=== PATIENT | male | born 1945 | race Two or more races ===

== ENCOUNTER 2019-08-19 19:32 | Inpatient (IN) | payer OTHER, MEDICAID ==
[~2019-08-19] VITALS: Ht 165.1 cm; Wt 63.2 kg
[2019-08-19 21:10] LABS: Basophils # (auto) 0 uL; Eosinophils # (auto) 0 uL; Monocytes # (auto) 0.1 uL
[2019-08-19 21:25] LABS: Albumin 2.6 g/dL (3.4-5.0); Anion Gap 13 (5-15); Blood Urea Nitrogen 24 mg/dL (7-18); Calcium 7.9 mg/dL (8.5-10.1); Carbon Dioxide 20 mmol/L (21-32); Chloride 96 mmol/L (98-107); Glucose 88 mg/dL (74-106); Sodium 129 mmol/L (136-145)
[2019-08-19 21:29] LABS: Alanine Aminotransferase 47 U/L (16-61); Aspartate Aminotransferase 134 U/L (15-37); GFR African American 54 mL/min; GFR Non-African American 45 mL/min
[2019-08-19 21:31] LABS: Alkaline Phosphatase 67 U/L (45-117); Bilirubin, Total 0.7 mg/dL (0.2-1.0); Total Protein 6.6 g/dL (6.4-8.2)
[2019-08-19 21:32] LABS: Lactic Acid w/Reflex 4.2 mmol/L (0.4-2.0)
[2019-08-19 21:33] LABS: Basophils % (auto) 0.3 % (0.0-2.0); Eosinophils % (auto) 0.1 % (0.0-7.0); Lymphocytes % (auto) 15.9 % (10.0-50.0); Monocytes % (auto) 4.6 % (0.0-12.0); Neutrophils % (auto) 79.1 % (37.0-80.0); White Blood Cell 2.3 10^3/uL (4.4-10.8)
[2019-08-19 21:34] LABS: Hematocrit 33.1 % (41.0-53.0); Hemoglobin 10.1 g/dL (13.5-17.5); Lymphocytes # (auto) 0.4 uL; Neutrophils # (auto) 1.8 uL; Nucleated Red Blood Cells % 0.6 %; Red Blood Cells 4.21 10^6/uL (4.5-5.90)
[2019-08-19 21:35] LABS: Mean Corpuscular Hgb Conc. 30.5 g/dL (32.0-36.0); Mean Corpuscular Volume 78.6 fL (80.0-100.0); Platelet Count (auto) 319 10^3/uL (140-450); Red Cell Distribution Width 19.4 % (11.8-14.3)
[2019-08-19] MEDS ORDERED: cefTRIAXone 1GM/50ML D5W 50 ML IV ONE (22:00)
[2019-08-19] MEDS ORDERED: SODIUM CHLORIDE 0.9% 1,000 ML IV ONE (22:00)
[2019-08-19] MEDS ORDERED: VANCOMYCIN 1GM/250ML 250 ML IV ONE (23:00)
[2019-08-19 23:27] VITALS: BP 105/63
--- NOTE | 2019-08-20 00:37 | NUR ---
HFNC TITRATED TO 55L 80% POX 94%
[2019-08-20] MEDS ORDERED: ENOXAPARIN SOD 100 MG/1 ML SYRINGE SC ONE (01:15)
[2019-08-20 01:24] LABS: Alcohol, Urine < 3.0 mg/dL (0-5); Amphetamine Screen, Urine NEGATIVE (NEGATIVE); Barbiturate Scree,Urine NEGATIVE (NEGATIVE); Benzodiazephine Screen, Urine POSITIVE (NEGATIVE); Cannabinoid Screen, Urine NEGATIVE (NEGATIVE); Cocaine Screen, Urine NEGATIVE (NEGATIVE); Phencyclidine Screen, Urine NEGATIVE (NEGATIVE)
[2019-08-20 01:32] LABS: Opiate Scree,Urine POSITIVE (NEGATIVE)
[2019-08-20 02:09] LABS: Urine Bacteria FEW /hpf (None Seen); Urine Blood 2+ /uL (Negative); Urine Hyaline Cast MANY /lpf (0 - 2); Urine Mucus FEW (None Seen); Urine Specific Gravity 1.022 (1.001-1.035); Urine Sperm PRESENT /hpf (None Seen); Urine WBC 11 /hpf (0 - 3)
[2019-08-20] MEDS ORDERED: IBUPROFEN 600 MG TAB PO ONE (02:15)
[2019-08-20] MEDS ORDERED: SODIUM CHLORIDE 0.9% 1,000 ML IV SCH ×2 (04:45→05:50)
[2019-08-20] MEDS ORDERED: SODIUM CHLORIDE 0.9% 500 ML IV ONE (04:45)
[2019-08-20] MEDS ORDERED: ONDANSETRON HCL 4 MG/2 ML VIAL IV PRN (04:45)
[2019-08-20] MEDS ORDERED: VANCOMYCIN PER PHARMACY 0 MG IV SCH (04:45)
[2019-08-20] MEDS ORDERED: MORPHINE SULF INJ 2 MG/ML SYRINGE 1ML IV PRN (05:30)
[2019-08-20] MEDS ORDERED: NITROGLYCERIN 0.4 MG SL TAB SL PRN (05:30)
[2019-08-20 06:10] VITALS: BP 111/65
[2019-08-20] MEDS: PIPERACILLIN-TAZOB 3.375GM 100 ML IV SCH ×3 (06:27→18:04)
--- NOTE | 2019-08-20 07:27 | NUR ---
Respiratory note: TITRATED FLOW TO 40L 50% FIO2. PT TOLERATING WELL POX 98%
[2019-08-20 10:06] VITALS: BP 80/50
[2019-08-20] MEDS: PANTOPRAZOLE 40 MG/10 ML VIAL INJ IV SCH (10:19)
[2019-08-20] MEDS ORDERED: LIDOCAINE HCL 2% TOP JELLY 5ML TOP ONE (10:23)
[2019-08-20 11:02] LABS: Hemoglobin 9.5 g/dL (13.5-17.5); Mean Corpuscular Volume 76.8 fL (80.0-100.0)
[2019-08-20 11:04] LABS: Hematocrit 30.6 % (41.0-53.0); Mean Corpuscular Hemoglobin 23.8 pg (28.0-32.0); Mean Corpuscular Hgb Conc. 30.9 g/dL (32.0-36.0); Platelet Count (auto) 285 10^3/uL (140-450); Red Blood Cells 3.98 10^6/uL (4.5-5.90); Red Cell Distribution Width 19.4 % (11.8-14.3); White Blood Cell 4.3 10^3/uL (4.4-10.8)
[2019-08-20 11:09] LABS: % Iron Saturation 2.2 % (20-55); Iron < 5 ug/dL (65-175); Total Iron Binding Capacity 227 ug/dL (250-450)
[2019-08-20 11:11] LABS: BUN/Creatinine Ratio 23.5; Calcium 7.1 mg/dL (8.5-10.1); Potassium 4.4 mmol/L (3.5-5.1)
[2019-08-20 11:23] LABS: Ferritin 64.2 ng/mL (10-322); Folate (Folic Acid) 17.68 ng/mL (5.38-24)
[2019-08-20 11:25] LABS: Basophils % (manual) 0 (0.0-2.0); Blast Cells 0; Promyelocytes % 0; Reactive Lymphocytes 0
[2019-08-20 12:07] LABS: Band Neutrophils % (manual) 40; Eosinophils % (manual) 2 (0-7); Lymphocytes % (manual) 14 (10.0-50.0); Metamyelocytes % 2; Monocytes % (manual) 12 (0-12); Myelocytes % 4
[2019-08-20] MEDS ORDERED: FILGRASTIM (TBO) 300 MCG/0.5 ML SYRG SC ONE (14:00)
[2019-08-20 14:25] VITALS: BP 80/50
[2019-08-20] MEDS: ACETYLCYSTEINE 10 %(100MG/ML) SOL 4ML NEB SCH ×3 (14:25→22:00)
[2019-08-20] MEDS: ALBUTEROL SULF 2.5 MG/0.5ML(0.5%) NEB SOLN NEB SCH ×3 (14:25→22:07)
[2019-08-20] MEDS: IPRATROPIUM BROM 0.5 MG/2.5ML INH SOL NEB PRN ×3 (14:25→22:07)
[2019-08-20] MEDS ORDERED: FUROSEMIDE 40 MG/4 ML VIAL IV ONE (15:15)
[2019-08-21] MEDS: ALPRAZolam 0.5 MG TAB PO PRN (00:07)
[2019-08-21] MEDS: PIPERACILLIN-TAZOB 3.375GM 100 ML IV SCH ×4 (00:07→19:14)
[2019-08-21] MEDS: ACETYLCYSTEINE 10 %(100MG/ML) SOL 4ML NEB SCH ×8 (02:00→22:19)
[2019-08-21] MEDS: ALBUTEROL SULF 2.5 MG/0.5ML(0.5%) NEB SOLN NEB SCH ×8 (02:00→22:19)
[2019-08-21 06:05] LABS: White Blood Cell 11.2 10^3/uL (4.4-10.8)
[2019-08-21 06:07] LABS: Hematocrit 30.7 % (41.0-53.0); Hemoglobin 9.7 g/dL (13.5-17.5); Mean Corpuscular Hemoglobin 23.9 pg (28.0-32.0); Mean Corpuscular Hgb Conc. 31.7 g/dL (32.0-36.0); Mean Corpuscular Volume 75.6 fL (80.0-100.0); Platelet Count (auto) 329 10^3/uL (140-450); Red Blood Cells 4.07 10^6/uL (4.5-5.90); Red Cell Distribution Width 19.6 % (11.8-14.3)
[2019-08-21] MEDS: FUROSEMIDE 40 MG/4 ML VIAL IV SCH ×2 (06:07→18:10)
[2019-08-21 06:13] LABS: Basophils % (manual) 0 (0.0-2.0); Blast Cells 0; Eosinophils % (manual) 0 (0-7); Promyelocytes % 0; Reactive Lymphocytes 0
[2019-08-21 06:35] LABS: BUN/Creatinine Ratio 24.5; Calcium 7.8 mg/dL (8.5-10.1); Potassium 3.4 mmol/L (3.5-5.1)
[2019-08-21 06:39] LABS: Bilirubin, Total 0.9 mg/dL (0.2-1.0); Total Protein 6.1 g/dL (6.4-8.2)
--- NOTE | 2019-08-21 07:19 | NUR ---
PT REFUSED MED NEB AT THIS TIME, NO SIGNS OF RESPIRATORY DISTRESS OR SOB, WHEEZING. REMOVED PT FROM [facility] AND PLACED PT ON 12L OXYMIZER. SP02 99%, HR 100. ELECTRONIC NEWS GATHERING CAMERA PERSON NOTIFIED.
[2019-08-21] MEDS ORDERED: SODIUM FERR GLUC 62.5MG/5ML 125 MG in SODIUM CHL 0.9% 100 ML IV SCH (08:00)
[2019-08-21 09:19] LABS: Band Neutrophils % (manual) 27; Lymphocytes % (manual) 6 (10.0-50.0); Metamyelocytes % 2; Monocytes % (manual) 5 (0-12); Myelocytes % 5
[2019-08-21] MEDS ORDERED: diphenhdrAMINE HCL 50 MG/1 ML VL ONE (09:49)
[2019-08-21] MEDS ORDERED: diphenhdrAMINE HCL 50 MG/1 ML VL IV ONE (10:00)
[2019-08-21] MEDS: PANTOPRAZOLE 40 MG/10 ML VIAL INJ IV SCH (10:07)
[2019-08-21] MEDS ORDERED: CLOP75TA41 PO (10:08)
[2019-08-21] MEDS ORDERED: PANT40TA2 PO (10:08)
[2019-08-21] MEDS ORDERED: MAGN400T40 PO (10:08)
[2019-08-21] MEDS ORDERED: ALPR0.5T PO (10:08)
[2019-08-21] MEDS ORDERED: TRAM50TA2 PO (10:08)
[2019-08-21] MEDS ORDERED: POTA1TAB61 PO (10:08)
[2019-08-21] MEDS ORDERED: ROSU5TAB5 PO (10:08)
[2019-08-21] MEDS: POTASSIUM CHL 20 Meq TABLET PO SCH ×2 (10:08→22:08)
[2019-08-21] MEDS ORDERED: FOLI1TAB6 PO (10:08)
[2019-08-21] MEDS ORDERED: INSLANTI SC (10:08)
[2019-08-21] MEDS ORDERED: TAMS0.4C36 PO (10:08)
[2019-08-21] MEDS ORDERED: ASPI81CH43 PO (10:08)
[2019-08-21] MEDS ORDERED: MONT4CHW9 PO (10:08)
[2019-08-21] MEDS ORDERED: METF-370 PO (10:08)
[2019-08-21] MEDS ORDERED: HYDR-4833 PO (10:08)
[2019-08-21] MEDS ORDERED: MESA800T2 PO (10:08)
--- NOTE | 2019-08-21 10:43 | NUR ---
Telemetry admit from ER MINDA BENAVIDES admitted to Telemetry unit after SBAR received. Patient oriented to JULIO STEWART, RN primary RN, unit, room 296B and unit policies regarding patient care and visiting hours. Patient now on continuous telemetry monitoring, tele box #69 and telemetry reading on arrival to unit is 129. Patient placed on bedside oxygen, weighed by bedscale and encouraged to call if they need something. All questions and concerns addressed, patient verbalized understanding.
[2019-08-21] MEDS ORDERED: VANCOMYCIN 1GM/250ML 250 ML IV ONE (10:45)
[2019-08-21] MEDS ORDERED: PIPERACILLIN-TAZOB 3.375GM 100 ML IV SCH (11:45)
--- NOTE | 2019-08-21 11:46 | NUR ---
PATIENT EDUCATED ON POSITIONING TO OFFSET PRESSURE Patient has a sacral wound dressed with Optifoam. Patient refuses to turn to his side stating "that's not how my doctor told me to do it" Patient was reeducated on positioning and continues to refuse. Will continue to monitor.
--- NOTE | 2019-08-21 11:55 | NUR ---
WOUND CARE NOTE: Wound care into see patient per wound care request regarding sacral wound that are noted present on admission. Khanh nurse took photographs of patient's wound upon admission for reference. Patient is 74 years old male with admitting diagnosis of Pneumonia with Sepsis. Patient with history of DM, Htn, CVA. Patient is resting in bed in Rm. 296A. Patient is awake, alert and follow simple direction. He's able to assist in turning and repositioning. Patient is in no stated pain at this time, however, informed body ache upon turning. Skin/wound assessment done with the assistance of patient's nurse, DEBBY Oliver. Noted patient's sacrum has large DTI (Deep Tissue Injury) measuring 10x9cm. Wound is dark purple with open ulceration to Lt and Rt distal sacrum, minimal serosanguineous drainage noted, no odor noted. Cleansed patient's sacrum with mild soap and water,patted dry, applied Z Guard cream and covered with Opti foam sacral dressing. Intact ecchymosis noted on patient's LLE and posterolateral knee. 0.5x0.5cm scabbed abrasion noted to his Rt lateral ankle; area is clean and dry,left open to air. Patient tolerated well, repositioned for comfort. DEBBY Oliver at bedside. RECOMMENDATION: Nursing to continue with BID/PRN cleaning and application Z Guard cream to sacrum per MD order, Dietary consult,frequent turning and repositioning schedule as condition permits, redistribute pressure points with pillows, air mattress, continue monitoring by wound care while patient is hospitalized. Addendum: 08/21/19 at 1608 by Sugey Biggs RN Amended: Links added.
--- NOTE | 2019-08-21 12:47 | NUR ---
PATIENT STATING HE IS "SO THIRSTY" patient is on fluid restrictions and was educated on it, patient verbalized understanding. Patient is a diabetic, no order for Accucheck or sliding scale. patient blood glucose was assessed, 212. Dr. Rahman made aware. New orders received.
[2019-08-21 13:00] VITALS: BP 135/74
[2019-08-21] MEDS ORDERED: DEXTROSE (50%) 50ML SYRG IV PRN (13:00)
--- NOTE | 2019-08-21 13:30 | NUR ---
AIR MATTRESS: Ordered air mattress. Ref# [id number]. ETA [id number]. Call [facility] If need to follow up [phone] Addendum: 08/21/19 at 1332 by Sugey Biggs RN Amended: Links added.
--- NOTE | 2019-08-21 13:38 | NUR ---
at bedside Updated on the plan of care and verbalized understanding. All questions answered.
--- NOTE | 2019-08-21 15:11 | NUR ---
Patient transferred to air mattress Patient tolerated well. No signs of distress noted.
--- NOTE | 2019-08-21 16:34 | NUR ---
Family at bedside
[2019-08-21 17:00] VITALS: BP 136/77
[2019-08-21] MEDS: ACCU-CHEK COMFORT CURVE STRIP VI SCH ×2 (17:11→22:08)
[2019-08-21] MEDS: InsuLIN REG 1unit/0.01ml Soln (100units/ml) SC SCH ×2 (17:18→22:08)
--- NOTE | 2019-08-21 18:55 | NUR ---
Hospitalist paged New orders received from Dr. Goodrich and carried out.
--- NOTE | 2019-08-21 19:25 | NUR ---
CLOSING SHIFT NOTES Care endorsed to shift mechanic RN. No signs of distress noted
[2019-08-21] MEDS: IPRATROPIUM BROM 0.5 MG/2.5ML INH SOL NEB PRN (19:36)
--- NOTE | 2019-08-21 19:47 | NUR ---
Respiratory note: TITRATED O2 TO 8L OXYMIZER.
--- NOTE | 2019-08-21 19:50 | NUR ---
Opening Shift Note Assumed care of patient, awake, AAOx1 to self, reoriented to time, place and situation. No S/S of distress/SOB or pain. Family and sitter at bedside, patient uncooperative and agitated with family and staff. Patient initially refused breathing treatment but was reeducated and verbalized understanding then agreed to have breathing treatment. Bed in lowest locked position, side rails up x2, call light within reach. Instructed on POC and to call for assist PRN, will continue to monitor for changes Q1hr and PRN.
[2019-08-21 20:00] VITALS: BP 130/73
--- NOTE | 2019-08-21 20:05 | NUR ---
PATIENT AGITATED AAOX1 TO SELF. REORIENTED TO TIME, PLACE AND SITUATION. PATIENT ATTEMPTING TO PULL OF TELE MONITOR. REEDUCATED PATIENT ON HOSPITAL POLICIES. PATIENT STATED, "I DO NOT CARE". PATIENT UNCOOPERATIVE WITH SITTER AND THIS NURSE. ADMINISTERED MEDICATION FOR AGITATION PER MD ORDERS. WILL CONTINUE TO MONITOR AND CONTINUE CARE.
[2019-08-21] MEDS: HALOPERIDOL LACTATE 5 MG/ML INJ VIAL IV PRN (20:18)
[2019-08-21 22:00] VITALS: BP 130/73
--- NOTE | 2019-08-21 22:19 | NUR ---
Respiratory note: PT REFUSE MED NEB AT THIS TIME, SITTER AT BEDSIDE
[2019-08-22] MEDS: PIPERACILLIN-TAZOB 3.375GM 100 ML IV SCH ×4 (01:06→19:33)
[2019-08-22] MEDS: HALOPERIDOL LACTATE 5 MG/ML INJ VIAL IV PRN (04:20)
[2019-08-22 05:55] LABS: Potassium 3.1 mmol/L (3.5-5.1)
[2019-08-22 06:00] LABS: Basophils # (auto) 0 uL; Eosinophils # (auto) 0 uL; Lymphocytes # (auto) 0.4 uL; Neutrophils # (auto) 18.2 uL
[2019-08-22 06:02] LABS: Basophils % (auto) 0.2 % (0.0-2.0); Hematocrit 31.2 % (41.0-53.0); Hemoglobin 9.9 g/dL (13.5-17.5); Mean Corpuscular Hgb Conc. 31.9 g/dL (32.0-36.0); Mean Corpuscular Volume 75.4 fL (80.0-100.0); Monocytes # (auto) 0.2 uL; Monocytes % (auto) 1.1 % (0.0-12.0); Neutrophils % (auto) 96.7 % (37.0-80.0); Nucleated Red Blood Cells % 0.6 %; Platelet Count (auto) 299 10^3/uL (140-450); Red Blood Cells 4.13 10^6/uL (4.5-5.90); Red Cell Distribution Width 18.4 % (11.8-14.3); White Blood Cell 18.8 10^3/uL (4.4-10.8)
[2019-08-22 06:03] LABS: BUN/Creatinine Ratio 26.1; Calcium 8.4 mg/dL (8.5-10.1)
[2019-08-22] MEDS: FUROSEMIDE 40 MG/4 ML VIAL IV SCH ×2 (06:11→18:10)
[2019-08-22 06:24] VITALS: BP 128/70
[2019-08-22] MEDS: ACCU-CHEK COMFORT CURVE STRIP VI SCH ×4 (06:43→23:26)
[2019-08-22] MEDS: InsuLIN REG 1unit/0.01ml Soln (100units/ml) SC SCH ×4 (06:44→23:27)
--- NOTE | 2019-08-22 07:04 | NUR ---
OPENING SHIFT NOTE Assumed care of patient from night stocker RN. Patient is alert and oriented x3, sitter at bedside. No signs of distress noted. Patient was update on the plan of care and verbalized understanding. Bed is locked, in the lowest position, side rails are up x2 and call light is in reach. Ogden is draining clear yellow urine, tube is free of kinks and is hung below bladder level. Patient is on oxygen at 15L/minute via Oxymizer. Patient was encouraged to call for assistance.
[2019-08-22] MEDS: ALBUTEROL SULF 2.5 MG/0.5ML(0.5%) NEB SOLN NEB SCH (07:15)
[2019-08-22] MEDS: ACETYLCYSTEINE 10 %(100MG/ML) SOL 4ML NEB SCH ×5 (07:15→22:47)
[2019-08-22] MEDS: IPRATROPIUM BROM 0.5 MG/2.5ML INH SOL NEB PRN (07:15)
[2019-08-22] MEDS: ALPRAZolam 0.5 MG TAB PO PRN (09:05)
--- NOTE | 2019-08-22 09:13 | NUR ---
FAMILY AT BEDSIDE Erich at bedside. Updated on the plan of care, verbalized understanding.
[2019-08-22] MEDS: POTASSIUM CHL 20 Meq TABLET PO SCH ×2 (09:35→23:25)
[2019-08-22] MEDS: PANTOPRAZOLE 40 MG/10 ML VIAL INJ IV SCH (09:35)
--- NOTE | 2019-08-22 09:36 | NUR ---
NOTIFIED DR SHARPE PATIENT HEART RATE 159, PATIENT STATED HE WAS ANXIOUS AND REQUESTED A XANAX. MEDICATION WAS BAG TURNER PER ORDERS, PATIENT HEART RATE CONTINUES TO STAY IN THE 150-[address] SHARPE AWARE, NO NEW ORDERS RECEIVED.
--- NOTE | 2019-08-22 09:50 | NUR ---
DR SHARPE AT BEDSIDE NEW ORDERS RECEIVED AND CARRIED OUT.
[2019-08-22] MEDS ORDERED: DIGOXIN (250MCG/ML) 2 ML AMPULE IV SCH (10:00)
[2019-08-22] MEDS ORDERED: POTASSIUM CHL 20 Meq TABLET PO ONE (10:00)
[2019-08-22] MEDS: DIGOXIN (250MCG/ML) 2 ML AMPULE IV SCH ×3 (10:14→23:26)
[2019-08-22] MEDS: ENOXAPARIN SOD 60 MG/0.6 ML SYRINGE SC SCH ×2 (10:22→23:24)
[2019-08-22] MEDS: AMIODARONE HCL 200 MG TAB PO SCH ×2 (10:22→23:24)
[2019-08-22] MEDS ORDERED: VANCOMYCIN 750mg/250ml 250 ML IV SCH (11:00)
[2019-08-22] MEDS: IPRATROPIUM BROM 0.5 MG/2.5ML INH SOL NEB SCH ×4 (11:01→22:47)
[2019-08-22 13:00] VITALS: BP 125/81
[2019-08-22] MEDS ORDERED: FLUCONAZOLE 100 MG TAB PO ONE (14:00)
--- NOTE | 2019-08-22 14:01 | NUR ---
NUTRITION ASSESSMENT NOTES Please refer to link notes of nutrition screen form filed under the intervention section of the plan of care for further details. Est. Needs: 1750 kcal to 2050 kcal (30-35 kcal/kgBW), 59 gms to 83 gms pro (1.0-1.4 gms/kgBW d/t severe hypoalbuminemia, wound healing). Will continue to monitor pertinent labs and reassess nutrient need prn Thank you. Addendum: 08/22/19 at [address] Amended: Links added.
[2019-08-22 17:00] VITALS: BP 155/70
--- NOTE | 2019-08-22 19:36 | NUR ---
CLOSING SHIFT NOTES Care endorsed to second shift supervisor RN. No signs of distress noted
--- NOTE | 2019-08-22 19:40 | NUR ---
received pt from day rn poc reviewed,
--- NOTE | 2019-08-22 20:10 | NUR ---
pt observed restless, periods of confusion, sitter at bedside for pts safety, mittens on to prevent pt from self harm, reoriented pt to surroundings
[2019-08-22 21:05] VITALS: BP 155/70
[2019-08-22 22:00] VITALS: BP 133/62
[2019-08-22] MEDS: TEMAZEPAM 15 MG CAP PO PRN (23:00)
[2019-08-23] VITALS (7 sets, daily range): BP systolic 134–152; BP diastolic 67–93
--- NOTE | 2019-08-23 01:10 | NUR ---
evening meds given resp een and unlabored, all questions and concerns addressed
[2019-08-23] MEDS: ACETYLCYSTEINE 10 %(100MG/ML) SOL 4ML NEB SCH ×6 (02:06→22:07)
[2019-08-23] MEDS: IPRATROPIUM BROM 0.5 MG/2.5ML INH SOL NEB SCH ×6 (02:06→22:07)
[2019-08-23] MEDS: PIPERACILLIN-TAZOB 3.375GM 100 ML IV SCH ×4 (03:08→18:05)
[2019-08-23] MEDS: HALOPERIDOL LACTATE 5 MG/ML INJ VIAL IV PRN ×2 (03:42→22:57)
--- NOTE | 2019-08-23 03:48 | NUR ---
pt woke up agitated, cursing and combative, haldol im given as ordered, reoriented pt to poc
[2019-08-23 05:18] LABS: Hematocrit 34.4 % (41.0-53.0); Hemoglobin 10.6 g/dL (13.5-17.5); Mean Corpuscular Hemoglobin 23.5 pg (28.0-32.0); Mean Corpuscular Hgb Conc. 30.9 g/dL (32.0-36.0); Mean Corpuscular Volume 76.1 fL (80.0-100.0); Platelet Count (auto) 311 10^3/uL (140-450); Red Blood Cells 4.52 10^6/uL (4.5-5.90); Red Cell Distribution Width 19.5 % (11.8-14.3); White Blood Cell 15.5 10^3/uL (4.4-10.8)
[2019-08-23] MEDS: InsuLIN REG 1unit/0.01ml Soln (100units/ml) SC SCH ×4 (05:37→21:14)
[2019-08-23] MEDS: ACCU-CHEK COMFORT CURVE STRIP VI SCH ×4 (05:37→20:59)
[2019-08-23] MEDS: FUROSEMIDE 40 MG/4 ML VIAL IV SCH ×2 (05:37→18:05)
[2019-08-23 05:43] LABS: BUN/Creatinine Ratio 26.4; Calcium 8.7 mg/dL (8.5-10.1)
[2019-08-23 05:49] LABS: Basophils % (manual) 0 (0.0-2.0); Blast Cells 0; Eosinophils % (manual) 0 (0-7); Metamyelocytes % 0; Promyelocytes % 0; Reactive Lymphocytes 0
[2019-08-23 06:03] LABS: Potassium 2.9 mmol/L (3.5-5.1)
--- NOTE | 2019-08-23 06:06 | NUR ---
pt woke restless, reoriented pt to surroundings pt prior medicated for agitation
--- NOTE | 2019-08-23 06:16 | NUR ---
pts potassium 2.9, hospitalist notified, orders received
--- NOTE | 2019-08-23 07:11 | NUR ---
first k rider 20 meq iv started, second rider in drawer, pt is aloc at this time oriented pt to poc, sitter at bedside for pts safety, pt earlier was kicking and spitting, haldol given at that time
--- NOTE | 2019-08-23 07:14 | NUR ---
report given to am nurse pardo reviewed, pt is npo for his cardiac stress test Signed: 08/23/19 at 0715 by Isela Durham RN
--- NOTE | 2019-08-23 07:15 | NUR ---
Opening Shift Note Assumed care of patient, awake, alert and oriented x 2 with sitter at bedside. No S/S of distress/SOB or pain. Instructed on POC and to call for assist PRN, will continue to monitor for changes Q1hr and PRN. Bed is locked, in the lowest position, side rails are up x2 and call light is in reach.
[2019-08-23] MEDS: POTASSIUM CHL 20MEQ/100ML 100 ML IV SCH ×2 (07:16→09:11)
[2019-08-23 07:35] LABS: Band Neutrophils % (manual) 7; Lymphocytes % (manual) 7 (10.0-50.0); Monocytes % (manual) 5 (0-12); Myelocytes % 1
--- NOTE | 2019-08-23 07:40 | NUR ---
IV insertion IV access obtained, via clean sterile technique by inserting 20 gauge catheter at the right upper arm after 1 attempt. IV secured properly. No trauma to site. Patient tolerated well.
[2019-08-23] MEDS ORDERED: ADENOSINE 54 MG in GIVE UN-DILUTED 0 ML IV STA (08:11)
--- NOTE | 2019-08-23 11:17 | NUR ---
Patient is off unit Taken down for stress test via gurney, no distress noted at time of departure. Both IV's flushed prior to departure.
[2019-08-23] MEDS: PANTOPRAZOLE 40 MG/10 ML VIAL INJ IV SCH (13:14)
[2019-08-23] MEDS: ENOXAPARIN SOD 60 MG/0.6 ML SYRINGE SC SCH ×2 (13:14→20:57)
[2019-08-23] MEDS: AMIODARONE HCL 200 MG TAB PO SCH ×2 (13:15→20:57)
[2019-08-23] MEDS: POTASSIUM CHL 20 Meq TABLET PO SCH ×2 (13:15→20:57)
[2019-08-23] MEDS ORDERED: LORazepam 0.5 MG TAB PO PRN (13:30)
[2019-08-23] MEDS ORDERED: VANCOMYCIN 750mg/250ml 250 ML IV SCH (14:00)
[2019-08-23] MEDS: ALPRAZolam 0.5 MG TAB PO PRN (14:37)
--- NOTE | 2019-08-23 15:21 | NUR ---
assessment Patient is a 74 year old male who is confused. I have called patients erich for my assessment questions with no answer. I have left Erich a message to return my call. Waiting personal financial advisor back now. Addendum: 08/23/19 at 1523 by Yashira FU Amended: Links added.
--- NOTE | 2019-08-23 16:57 | NUR ---
Stress Test- Nuclear stress test completed on 08/23/2019.
--- NOTE | 2019-08-23 18:45 | NUR ---
Paged hospitalist Awaiting call back to report elevated BP: 153/90 and K level 3.2.
--- NOTE | 2019-08-23 19:24 | NUR ---
Endorsed care to NOC RN.
[2019-08-23] MEDS: TEMAZEPAM 15 MG CAP PO PRN (21:14)
[2019-08-24] MEDS: PIPERACILLIN-TAZOB 3.375GM 100 ML IV SCH ×2 (00:45→05:35)
[2019-08-24] MEDS: IPRATROPIUM BROM 0.5 MG/2.5ML INH SOL NEB SCH ×6 (02:00→22:17)
[2019-08-24] MEDS: ACETYLCYSTEINE 10 %(100MG/ML) SOL 4ML NEB SCH ×5 (02:00→18:12)
--- NOTE | 2019-08-24 02:32 | NUR ---
Respiratory note: PT REFUSED SCHEDULE [place] TX AT THIS TIME.PT WAS VERY AGITATED AND STARTED TO SWING ARMS AROUND SAYING TO LEAVE HIM ALONE.
[2019-08-24 04:08] VITALS: BP 151/71
[2019-08-24] MEDS: FUROSEMIDE 40 MG/4 ML VIAL IV SCH ×2 (05:35→16:58)
[2019-08-24] MEDS: ACCU-CHEK COMFORT CURVE STRIP VI SCH ×4 (05:35→22:00)
[2019-08-24] MEDS: InsuLIN REG 1unit/0.01ml Soln (100units/ml) SC SCH ×4 (05:49→22:00)
[2019-08-24 06:52] LABS: Hematocrit 34.4 % (41.0-53.0); Mean Corpuscular Hemoglobin 23.7 pg (28.0-32.0)
[2019-08-24 06:55] LABS: Hemoglobin 10.6 g/dL (13.5-17.5); Mean Corpuscular Volume 76.5 fL (80.0-100.0); Platelet Count (auto) 300 10^3/uL (140-450); Red Blood Cells 4.49 10^6/uL (4.5-5.90); White Blood Cell 14.2 10^3/uL (4.4-10.8)
[2019-08-24 06:57] LABS: BUN/Creatinine Ratio 30.3; Calcium 8.2 mg/dL (8.5-10.1); Potassium 3.3 mmol/L (3.5-5.1)
[2019-08-24 07:03] LABS: Basophils % (manual) 0 (0.0-2.0); Blast Cells 0; Metamyelocytes % 0; Promyelocytes % 0; Reactive Lymphocytes 0
--- NOTE | 2019-08-24 07:16 | NUR ---
Opening Shift Note Assumed care of patient, awake and alert. No S/S of distress/SOB or pain. Bed is set in lowest locked position with side rails up x 2 for safety and call light is within reach, will continue to monitor for changes Q1hr and PRN.
[2019-08-24 07:58] LABS: Band Neutrophils % (manual) 5; Eosinophils % (manual) 1 (0-7); Lymphocytes % (manual) 12 (10.0-50.0); Monocytes % (manual) 5 (0-12); Myelocytes % 1
[2019-08-24 08:01] VITALS: BP 146/71
[2019-08-24 09:00] VITALS: BP 146/71
[2019-08-24] MEDS: ENOXAPARIN SOD 60 MG/0.6 ML SYRINGE SC SCH (10:12)
[2019-08-24] MEDS: LEVOFLOXACIN 750MG 150 ML IV SCH (10:12)
[2019-08-24] MEDS: AMIODARONE HCL 200 MG TAB PO SCH ×2 (10:12→20:32)
[2019-08-24] MEDS: POTASSIUM CHL 20 Meq TABLET PO SCH ×2 (10:13→20:32)
--- NOTE | 2019-08-24 10:30 | NUR ---
Guzman catheter dc'd Order to discontinue guzman catheter. Guzman dc'd with clean technique following deflation of balloon. Patient tolerated well with no complaints of pain. Continue care.
--- NOTE | 2019-08-24 12:00 | NUR ---
assessment Patient is a 74 year old male who is alert and oriented today. Per patient prior to admission he lived home with his Erich and functioned independently. Per patient he cares for his own ADL's and he cooks and cleans for the family. Per patient he has a fww and wheelchair at home, but does not need to use them. Patient informed me his PCP is Dr Goodrich. I called patients to verify information with patients consent and per Erich all assessment answers were correct. Per patient and Erich patient has no post discharge needs at this time. I informed patient he has a right to speak to a social security assessor regarding all care. I informed patient he has a right to participate in any and all discharge planning. Patient does not have a POA and advanced directive. I have offered patient information on POA and advanced directives. I informed the patient the advantages and benefits of having an Advanced Directive. Patient verbalized understanding and agreed to discharge plan. Addendum: 08/25/19 at 1459 by Yashira FU Amended: Links added.
[2019-08-24 13:00] VITALS: BP 143/79
[2019-08-24] MEDS ORDERED: INSULIN LANTUS (GLARGINE) 1 /0.01ml (100units/ml) SC ONE (13:30)
[2019-08-24 16:55] VITALS: BP 141/71
[2019-08-24] MEDS: APIXABAN 5 MG TAB PO SCH (20:32)
[2019-08-24] MEDS: TEMAZEPAM 15 MG CAP PO PRN (20:33)
[2019-08-24 21:59] VITALS: BP 160/68
[2019-08-25] MEDS: IPRATROPIUM BROM 0.5 MG/2.5ML INH SOL NEB SCH ×6 (02:01→22:25)
[2019-08-25] MEDS: ACETYLCYSTEINE 10 %(100MG/ML) SOL 4ML NEB SCH ×4 (02:02→22:25)
[2019-08-25 04:56] VITALS: BP 153/79
[2019-08-25] MEDS: ACCU-CHEK COMFORT CURVE STRIP VI SCH ×4 (06:15→22:03)
[2019-08-25] MEDS: InsuLIN REG 1unit/0.01ml Soln (100units/ml) SC SCH ×4 (06:23→22:03)
[2019-08-25] MEDS: FUROSEMIDE 40 MG/4 ML VIAL IV SCH ×2 (06:23→18:32)
[2019-08-25 06:31] LABS: Hemoglobin 10.4 g/dL (13.5-17.5); Mean Corpuscular Hemoglobin 23.8 pg (28.0-32.0); White Blood Cell 13.8 10^3/uL (4.4-10.8)
[2019-08-25 06:36] LABS: Hematocrit 34.6 % (41.0-53.0); Mean Corpuscular Hgb Conc. 30.2 g/dL (32.0-36.0); Mean Corpuscular Volume 78.9 fL (80.0-100.0); Platelet Count (auto) 331 10^3/uL (140-450); Red Blood Cells 4.39 10^6/uL (4.5-5.90); Red Cell Distribution Width 18.7 % (11.8-14.3)
[2019-08-25 06:53] LABS: Calcium 8.2 mg/dL (8.5-10.1); Potassium 3.6 mmol/L (3.5-5.1)
[2019-08-25 06:54] LABS: BUN/Creatinine Ratio 38.2
[2019-08-25 06:55] LABS: Basophils % (manual) 0 (0.0-2.0); Blast Cells 0; Eosinophils % (manual) 0 (0-7); Myelocytes % 0; Promyelocytes % 0; Reactive Lymphocytes 0
[2019-08-25 08:00] VITALS: BP 149/46
[2019-08-25 08:25] LABS: Band Neutrophils % (manual) 9; Lymphocytes % (manual) 9 (10.0-50.0); Metamyelocytes % 1; Monocytes % (manual) 4 (0-12)
[2019-08-25] MEDS: AMIODARONE HCL 200 MG TAB PO SCH ×2 (11:10→22:03)
[2019-08-25] MEDS: POTASSIUM CHL 20 Meq TABLET PO SCH ×2 (11:10→22:00)
[2019-08-25] MEDS: APIXABAN 5 MG TAB PO SCH ×2 (11:10→22:03)
[2019-08-25] MEDS: INSULIN LANTUS (GLARGINE) 1 /0.01ml (100units/ml) SC SCH (11:11)
[2019-08-25] MEDS: LEVOFLOXACIN 750MG 150 ML IV SCH (11:11)
[2019-08-25 13:00] VITALS: BP 137/81
--- NOTE | 2019-08-25 15:03 | NUR ---
Respiratory note: PT CHANGED TO N/C WITH HUMIDIFICATION FROM OXYMIZER DUE TO NOSE DRYNESS. PT STATES HE DOES HAVE RELIEF. SPO2 94%.
--- NOTE | 2019-08-25 16:15 | NUR ---
RECEIVED CALL BACK FROM DOCTOR SHARPE INFORMED PATIENT REQUESTING NORCO FOR PAIN. NEW ORDERS RECEIVED SEE EMR FOR ORDERS
[2019-08-25 17:07] VITALS: BP 143/78
--- NOTE | 2019-08-25 19:45 | NUR ---
Opening Shift Note Assumed care of patient, currently AOx4. Team-member at bedside for safety for periods of confusion. No S/S of distress/SOB or pain. Patient states he wants to sleep. Patient educated on reasons and importance of treatment, however, patient has right to refuse any treatment. Fall and safety precautions in place. Call light within reach and able to use. Instructed on POC and to call for assist PRN, will continue to monitor for changes Q1hr and PRN.
[2019-08-25 20:56] VITALS: BP 143/78
[2019-08-25 21:00] VITALS: BP 140/71
[2019-08-26] MEDS: IPRATROPIUM BROM 0.5 MG/2.5ML INH SOL NEB SCH ×6 (02:18→22:42)
[2019-08-26 05:24] VITALS: BP 147/75
[2019-08-26] MEDS: ACETYLCYSTEINE 10 %(100MG/ML) SOL 4ML NEB SCH (05:55)
[2019-08-26] MEDS: FUROSEMIDE 40 MG/4 ML VIAL IV SCH (06:23)
[2019-08-26] MEDS: ACCU-CHEK COMFORT CURVE STRIP VI SCH ×4 (06:24→21:35)
[2019-08-26] MEDS: InsuLIN REG 1unit/0.01ml Soln (100units/ml) SC SCH ×4 (06:24→22:39)
[2019-08-26] MEDS: HYDROcodone-ACET 5/325MG TAB PO PRN ×2 (06:37→12:26)
[2019-08-26 06:44] LABS: BUN/Creatinine Ratio 42.2; Calcium 8.3 mg/dL (8.5-10.1); Potassium 3.8 mmol/L (3.5-5.1)
[2019-08-26 08:00] VITALS: BP 144/79
[2019-08-26] MEDS: LEVOFLOXACIN 750MG 150 ML IV SCH (10:42)
[2019-08-26] MEDS: AMIODARONE HCL 200 MG TAB PO SCH ×2 (10:42→21:34)
[2019-08-26] MEDS: APIXABAN 5 MG TAB PO SCH ×2 (10:42→21:34)
[2019-08-26] MEDS: INSULIN LANTUS (GLARGINE) 1 /0.01ml (100units/ml) SC SCH (10:44)
[2019-08-26 13:00] VITALS: BP 136/77
[2019-08-26] MEDS ORDERED: LEVOFLOXACIN 250 MG TAB PO ONE (13:00)
--- NOTE | 2019-08-26 14:07 | NUR ---
Nutrition Follow-up Notes Wt.: 62.1 kg today. Pt's on oxygen via nasal cannula, denies any discomfort when rounded this morning. Pt's currently on Consistent Standard Carb: 60 gms/meal, Cardiac: 2 gms Na, Low Chol, Low Fat diet with inadequate PO intake aeb <25% ave. consumed meals (x6) in last 2.5 days. Encouraged to increase food intake through small frequent meals as tolerated. Reinforced nutrition educ. re: current therapeutic diet and he verbalized understanding. Est. Needs: 1750 kcal to 2050 kcal (30-35 kcal/kgBW), 59 gms to 83 gms pro (1.0-1.4 gms/kgBW d/t severe hypoalbuminemia, wound healing). Will continue to monitor pertinent labs and reassess nutrient need prn Labs: Gluc 173 H, Na 132 L, BUN 38 H, Ca 8.3 L, AST 108 H, Tpro 6.1 L, Alb 2.0 L Skin: Darryl scale 13,mod risk, pt's medial sacrum DTI per documentation writer. Pls refer to latest overnight caregiver's notes for further details re: tx plans. GI: Pt had 1 BM this morning per documentation writer. PES: Increased nutrient needs r/t acute/chronic medical condition aeb 96% IBW, BMI 21.7 kg/m2, decreased muscle mass, hx of wt loss, wound healing, severe hypoalbuminemia,<75% consumed meals. Altered nutrition related lab values r/t current/chronic medical condition aeb hyperglycemia, hyponatremia, hypokalemia, hypochloremia, hypocalcemia and severe hypoalbuminemia Will continue to monitor PO intake, skin status, pertinent labs and weight trend. F/u in 3 to 5 days. Rec.: 1.) Pls enter order for Glucerna Shakes 1 carton TID, Prostat 1 pkt BID, daily MVI with minerals and Asc acid 500 mgs BID, already e-signed approved by . 2.) Continue close supervision and feeding assistance prn during meals. 3.) Refer to CDE/RD for further nutrition educ. and weight monitoring upon discharge. 4.) Continue current plan of care.
--- NOTE | 2019-08-26 14:58 | NUR ---
D/C Placement Per consult for home health physical therapy. Order was reviewed by TANK Dias. Per TANK Dias patient does not meet criteria for home health. Informed Dr. Josiah ORTA patient can do outpatient physical therapy. Dr. Josiah ORTA stated she will speak to patient .
--- NOTE | 2019-08-26 16:10 | NUR ---
PER PATIENTS PATIENT BREAKS OUT IN HIVES WHEN TAKING LEVAQUIN PO BUT CAN HAVE LEVAQUIN IV. PAGED DOCTOR ANNEMARIE TO INFORM HER. AWAITING CALL BACK.
--- NOTE | 2019-08-26 16:40 | NUR ---
PAGED DOCTOR ANNEMARIE X2. AWAITING CALL BACK.
[2019-08-26 17:00] VITALS: BP 149/76
[2019-08-26 20:00] VITALS: BP 165/80
[2019-08-26 22:00] VITALS: BP 165/80
[2019-08-27] VITALS (7 sets, daily range): BP systolic 140–163; BP diastolic 72–80
[2019-08-27] MEDS: IPRATROPIUM BROM 0.5 MG/2.5ML INH SOL NEB SCH ×6 (02:00→22:00)
[2019-08-27] MEDS: ACCU-CHEK COMFORT CURVE STRIP VI SCH ×4 (07:00→22:00)
[2019-08-27] MEDS: InsuLIN REG 1unit/0.01ml Soln (100units/ml) SC SCH ×4 (07:00→22:00)
[2019-08-27 07:19] LABS: Hematocrit 33.1 % (41.0-53.0); Hemoglobin 10.3 g/dL (13.5-17.5); Mean Corpuscular Volume 77.4 fL (80.0-100.0); Platelet Count (auto) 469 10^3/uL (140-450); Red Blood Cells 4.28 10^6/uL (4.5-5.90); Red Cell Distribution Width 19.8 % (11.8-14.3); White Blood Cell 15.6 10^3/uL (4.4-10.8)
[2019-08-27 07:25] LABS: Basophils % (manual) 0 (0.0-2.0); Blast Cells 0; Eosinophils % (manual) 0 (0-7); Promyelocytes % 0; Reactive Lymphocytes 0
[2019-08-27 07:37] LABS: BUN/Creatinine Ratio 52.7; Calcium 8.5 mg/dL (8.5-10.1); Potassium 3.4 mmol/L (3.5-5.1)
[2019-08-27 07:43] LABS: Band Neutrophils % (manual) 6; Lymphocytes % (manual) 9 (10.0-50.0); Metamyelocytes % 3; Monocytes % (manual) 1 (0-12); Myelocytes % 2
--- NOTE | 2019-08-27 07:49 | NUR ---
Report given to Daria Hamilton, patient is resting, no distress, sitter at bedside.
[2019-08-27] MEDS ORDERED: LEVOFLOXACIN 250 MG TAB PO SCH (10:00)
[2019-08-27] MEDS: AMIODARONE HCL 200 MG TAB PO SCH ×2 (10:18→21:59)
[2019-08-27] MEDS: APIXABAN 5 MG TAB PO SCH (10:18)
[2019-08-27 10:27] LABS: Magnesium 2.3 mg/dL (1.6-2.6); Phosphorus 3.8 mg/dL (2.5-4.90)
[2019-08-27] MEDS ORDERED: POTASSIUM CHL 20 Meq TABLET PO ONE (12:00)
[2019-08-27] MEDS: INSULIN LANTUS (GLARGINE) 1 /0.01ml (100units/ml) SC SCH (12:06)
[2019-08-27] MEDS: Glucerna Carbsteady SHAKE Vanilla 8oz PO SCH ×2 (12:07→18:43)
--- NOTE | 2019-08-27 13:06 | NUR ---
Pt ambulated with Physical Therapy approximately 50 feet this morning with walker Addendum: 08/27/19 at 1314 by JEY HILL RN RN Amended: Links added.
--- NOTE | 2019-08-27 16:00 | NUR ---
Changed dressing to sacrum. Patient tolerated well. Positioned patient on right side after dressing change
--- NOTE | 2019-08-27 20:50 | NUR ---
Paged urology and left message. Patient is having hematuria with kezia red blood. Unable to place Ogden catheter as the catheter will not advance to bladder. Bladder scanner shows patient has 350 ml of urine in bladder.
[2019-08-27] MEDS: HYDROcodone-ACET 5/325MG TAB PO PRN (22:00)
--- NOTE | 2019-08-27 22:10 | NUR ---
Respiratory note: PT REFUSING BREATHING TX AT THIS TIME. PT REMAINS ON NC4L. SPO2 95%, HR 95, RR 18. WILL CONTINUE TO MONITOR PT T/O SHIFT.
--- NOTE | 2019-08-27 23:12 | NUR ---
Called on-call urology physician, spoke with Dr. Gastelum, gave report of patients condition. Doctor is aware patient has gross hematuria with a tender and distended lower abdomen. Reported to doctor there were 2 unsuccessful catheter attempts with 3 nurses along with the charge nurse. Notified doctor the Eliquis has been discontinued by the ER physician. Doctor stated to not try another guzman catheter at this time. He stated to monitor patient to see if he will void on own.
--- NOTE | 2019-08-28 01:42 | NUR ---
Patient had soiled bed with hematuria, no complaints of pain noted. Changed sacral dressing, was soiled with BM and serosanguineous drainage, put on Optifoam.
[2019-08-28] MEDS: IPRATROPIUM BROM 0.5 MG/2.5ML INH SOL NEB SCH ×6 (02:31→21:46)
--- NOTE | 2019-08-28 02:31 | NUR ---
Respiratory note: PT REFUSING BREATHING TX AT THIS TIME AND WANTS TO SLEEP. PT REMAINS ON NC4L. SPO2 94%, HR 90, RR 18. WILL CONTINUE TO MONITOR PT T/O SHIFT.
--- NOTE | 2019-08-28 03:00 | NUR ---
Opening Shift Note: Assumed care of patient, awake and alert. No S/S of distress/SOB or pain. Patient readjusted at this time. Bed in lowest locked position, side rails up x 2, call light within reach. Patient instructed on POC and to call for assist PRN, will continue to monitor for changes Q1hr and PRN.
[2019-08-28] MEDS: HYDROcodone-ACET 5/325MG TAB PO PRN ×3 (04:00→20:45)
[2019-08-28 05:00] VITALS: BP 163/91
[2019-08-28] MEDS: ACCU-CHEK COMFORT CURVE STRIP VI SCH ×4 (07:01→22:16)
[2019-08-28] MEDS: InsuLIN REG 1unit/0.01ml Soln (100units/ml) SC SCH ×4 (07:01→22:16)
[2019-08-28 09:00] VITALS: BP 157/87
[2019-08-28] MEDS: Glucerna Carbsteady SHAKE Vanilla 8oz PO SCH ×3 (09:49→18:03)
[2019-08-28] MEDS: INSULIN LANTUS (GLARGINE) 1 /0.01ml (100units/ml) SC SCH (10:55)
[2019-08-28] MEDS: AMIODARONE HCL 200 MG TAB PO SCH ×2 (10:55→21:45)
[2019-08-28 11:19] LABS: Basophils # (auto) 0 uL; Eosinophils # (auto) 0 uL; Neutrophils # (auto) 16.8 uL
[2019-08-28 11:23] LABS: Basophils % (auto) 0.1 % (0.0-2.0); Hematocrit 31.9 % (41.0-53.0); Hemoglobin 9.7 g/dL (13.5-17.5); Lymphocytes % (auto) 5.5 % (10.0-50.0); Mean Corpuscular Hemoglobin 23.6 pg (28.0-32.0); Mean Corpuscular Hgb Conc. 30.6 g/dL (32.0-36.0); Mean Corpuscular Volume 77.3 fL (80.0-100.0); Monocytes # (auto) 0.9 uL; Monocytes % (auto) 4.9 % (0.0-12.0); Neutrophils % (auto) 89.5 % (37.0-80.0); Platelet Count (auto) 535 10^3/uL (140-450); Red Blood Cells 4.12 10^6/uL (4.5-5.90); Red Cell Distribution Width 19.5 % (11.8-14.3); White Blood Cell 18.8 10^3/uL (4.4-10.8)
[2019-08-28 13:00] VITALS: BP 166/87
--- NOTE | 2019-08-28 13:00 | NUR ---
WOUND CARE NOTE: IN TO SEE PATIENT AT THIS TIME FOR SKIN INTEGRITY MONITORING. PATIENT CONTINUES TO REST ON SPECIALTY AIR MATTRESS. CURRENT DONALD SCORE IS 18. PATIENT CAN SELF TURN/REPOSITION SELF. HE IS VERY THIN, WEIGHING ONLY 62 KG. PATIENT WAS ADMITTED TO [facility] WITH LARGE PURPLE DTI TO SACRUM. DTI HAS CONTINUED TO EVOLVE, AND IS NOW OPEN TO PARTIAL THICKNESS, MEASURING 7 X 10 CM. PATIENT HAS BEEN HAVING HEMATURIA WITH CLOTS, AND MULTIPLE EPISODES WITH INCONTINENT DIARRHEA, THAT IS EXACERBATING HIS SKIN. PATIENT WILL BE SEEING UROLOGIST THIS PM FOR HIS HEMATURIA. ADVISED BEDSIDE NURSE THAT IS PATIENT HAS MORE THAN 7 INCONTINENT EPISODES WITH DIARRHEA PER SHIFT, HE MAY QUALIFY FOR A RECTAL TUBE. HE HAS HAD TWO EPISODES TODAY. APPLIED ZGUARD TO OPEN SACRAL WOUND, SECURING ZGUARD IN PLACE WITH LARGE XEROFORM SHEETS. NO OTHER WOUNDS NOTED. RECOMMEND: BID/PRN APPLICATION WITH ZGUARD AND XEROFORM SHEETS TO SACRAL WOUND, CONSIDERATION FOR RECTAL TUBE IF HAS MORE THAN 7 INCONTINENT DIARRHEA EPISODES PER SHIFT, [id number] POSITIONING, AVOIDING SUPINE POSITION, CONTINUATION WITH ALL OTHER WOUND CARE ORDERS PREVIOUSLY PRESCRIBED BY MD. WOUND CARE TEAM WILL CONTINUE TO MONITOR. Addendum: 08/28/19 at 1846 by Denice Nicholson RN Amended: Links added.
--- NOTE | 2019-08-28 14:54 | NUR ---
PATIENT NOT HAVING URINE OUTPUT SINCE 10 A.M. NOW HAVING PAIN 05/13 BLADDER SCANNER SHOWED [address] P[address] DONG
--- NOTE | 2019-08-28 16:15 | NUR ---
REPORT GIVEN TO HEBER Greenwood
[2019-08-28 17:03] VITALS: BP 152/87
--- NOTE | 2019-08-28 17:15 | NUR ---
LEFT A MESSAGE WITH DR. PAGAN ANSWERING SERVICE. AWAITING CALL BACK TO GET ORDERS FOR DIAZ PLACEMENT.
--- NOTE | 2019-08-28 18:13 | NUR ---
Patient refusing to have Guzman catheter placed. Educated patient on the necessity of having the guzman catheter placed. Patient responded by saying that he doesn't want it and to stop telling him what he needs. I again explained the reasons why he needs the guzman and he just waved it off and does not want it. Dr. Méndez informed. Still awaiting a call back from Dr. Stubbs.
[2019-08-28 19:58] VITALS: BP 152/87
--- NOTE | 2019-08-28 20:15 | NUR ---
SPOKE WITH CHARGE NURSE BIN ABOUT PT'S NEW STAND. DOCTOR FRAIRE DID NOT CALLED BACK YET. PAGED DOCTOR FRAIRE AGAIN FOR ORDERS
--- NOTE | 2019-08-28 21:02 | NUR ---
PT NOT ACCEPTING DIAZ INSERTION BY NURSE.HE WANTS A DOCTOR TO PUT DIAZ IN.
--- NOTE | 2019-08-28 21:05 | NUR ---
CHARGE NURSE BALDO CALLED MILL SET UP TO INFORM ABOUT PT'S REFUSAL FOR DIAZ INSERTED BY NURSE.
--- NOTE | 2019-08-28 21:11 | NUR ---
RECEIVED DIAZ ORDER FROM HOSPITALIST
[2019-08-28 22:17] VITALS: BP 179/92
--- NOTE | 2019-08-28 23:05 | NUR ---
PAGED HOSPITALIST TO ASK TO INSERT THE DIAZ PER PATIENT REQUEST. BLADDER SCAN IS SHOWING MORE THEN 999 ml
--- NOTE | 2019-08-28 23:20 | NUR ---
PER HOSPITALIST DOCTOR YEE SHOULD BE PAGED AGAIN.
--- NOTE | 2019-08-28 23:30 | NUR ---
Pt ready to accept the guzman placement by Lso morales house mover supervisor
--- NOTE | 2019-08-28 23:50 | NUR ---
Guzman catheter insertion BY PRESS HELPER Patient assessed and determined to be in need of guzman catheter. Order obtained from MD. Patient educated on catheter and reason for insertion. All questions answered. Guzman catheter 2 ways 16 guage Danish inserted with clean sterile technique.1050 ml dark blood and urine drained out of the bladder. Patient tolerated well.
[2019-08-29 05:41] VITALS: BP 139/78
[2019-08-29 06:44] LABS: Eosinophils # (auto) 0 uL; Monocytes # (auto) 0.8 uL
[2019-08-29 06:46] LABS: Basophils # (auto) 0.1 uL; Basophils % (auto) 0.4 % (0.0-2.0); Hemoglobin 8.8 g/dL (13.5-17.5); Lymphocytes # (auto) 1.3 uL; Lymphocytes % (auto) 6.4 % (10.0-50.0); Mean Corpuscular Hemoglobin 23.8 pg (28.0-32.0); Mean Corpuscular Hgb Conc. 30.5 g/dL (32.0-36.0); Mean Corpuscular Volume 77.9 fL (80.0-100.0); Neutrophils # (auto) 18.4 uL; Neutrophils % (auto) 89.2 % (37.0-80.0); Platelet Count (auto) 522 10^3/uL (140-450); Red Blood Cells 3.72 10^6/uL (4.5-5.90); Red Cell Distribution Width 19.6 % (11.8-14.3); White Blood Cell 20.6 10^3/uL (4.4-10.8)
[2019-08-29 07:06] LABS: Calcium 8.2 mg/dL (8.5-10.1); Potassium 4.2 mmol/L (3.5-5.1)
[2019-08-29 07:10] LABS: BUN/Creatinine Ratio 52.9
[2019-08-29] MEDS: IPRATROPIUM BROM 0.5 MG/2.5ML INH SOL NEB SCH ×5 (07:15→23:12)
--- NOTE | 2019-08-29 07:15 | NUR ---
Opening Shift Note: Assumed care of patient. Patient asleep at this time. No S/S of distress/SOB or pain. Respirations even and unlabored. Bed in lowest locked position, side rails up x 2, call light within reach. Patient will be instructed on POC and to call for assist PRN, will continue to monitor for changes Q1hr and PRN.
[2019-08-29] MEDS: ACCU-CHEK COMFORT CURVE STRIP VI SCH ×4 (07:19→22:00)
[2019-08-29] MEDS: InsuLIN REG 1unit/0.01ml Soln (100units/ml) SC SCH ×4 (07:20→22:00)
[2019-08-29 09:00] VITALS: BP 140/76
[2019-08-29] MEDS: AMIODARONE HCL 200 MG TAB PO SCH ×2 (09:35→22:55)
[2019-08-29] MEDS: INSULIN LANTUS (GLARGINE) 1 /0.01ml (100units/ml) SC SCH (09:35)
[2019-08-29] MEDS: Glucerna Carbsteady SHAKE Vanilla 8oz PO SCH ×3 (10:08→17:29)
[2019-08-29] MEDS: HYDROcodone-ACET 5/325MG TAB PO PRN (12:44)
[2019-08-29 13:00] VITALS: BP 152/87
--- NOTE | 2019-08-29 13:44 | NUR ---
IV insertion: IV access obtained, via clean sterile technique by inserting 20 gauge catheter at right wrist after 1 attempt. IV secured properly. No trauma to site. Patient tolerated well. IV removal: Both IVs DC'd with clean sterile technique, catheter fully intact. Pressure dressing applied to site. Patient tolerated well.
--- NOTE | 2019-08-29 15:45 | NUR ---
Dr. Meade: Dr. Méndez at bedside, discussed POC with patient and family.
[2019-08-29 17:00] VITALS: BP 145/69
[2019-08-29 17:46] LABS: Hematocrit 29.5 % (41.0-53.0)
[2019-08-29 17:58] LABS: INR 1.01 (0.9-1.15)
--- NOTE | 2019-08-29 19:07 | NUR ---
Closing note: Care endorsed to NOC RN.
--- NOTE | 2019-08-29 19:10 | NUR ---
Opening Shift Note Assumed care of patient, awake and alert. No S/S of distress/SOB or pain. Instructed on POC and to call for assist PRN, will continue to monitor for changes Q1hr and PRN.
[2019-08-29 22:00] VITALS: BP 150/75
[2019-08-30] MEDS: IPRATROPIUM BROM 0.5 MG/2.5ML INH SOL NEB SCH ×4 (02:30→18:00)
[2019-08-30 05:00] VITALS: BP 147/72
[2019-08-30 06:02] LABS: Basophils # (auto) 0 uL; Basophils % (auto) 0.1 % (0.0-2.0); Eosinophils # (auto) 0 uL; Eosinophils % (auto) 0.1 % (0.0-7.0); Lymphocytes # (auto) 1.2 uL; Monocytes # (auto) 0.8 uL
[2019-08-30 06:08] LABS: Hematocrit 25.9 % (41.0-53.0); Hemoglobin 8.3 g/dL (13.5-17.5); Lymphocytes % (auto) 6.7 % (10.0-50.0); Mean Corpuscular Hemoglobin 24.6 pg (28.0-32.0); Mean Corpuscular Volume 76.8 fL (80.0-100.0); Monocytes % (auto) 4.5 % (0.0-12.0); Neutrophils # (auto) 15.6 uL; Neutrophils % (auto) 88.6 % (37.0-80.0); Nucleated Red Blood Cells % 0.2 %; Platelet Count (auto) 550 10^3/uL (140-450); Red Blood Cells 3.37 10^6/uL (4.5-5.90); Red Cell Distribution Width 19.4 % (11.8-14.3); White Blood Cell 17.6 10^3/uL (4.4-10.8)
[2019-08-30 06:21] LABS: Potassium 4.1 mmol/L (3.5-5.1)
[2019-08-30 06:28] LABS: BUN/Creatinine Ratio 59.7; Calcium 8.2 mg/dL (8.5-10.1)
--- NOTE | 2019-08-30 07:10 | NUR ---
Opening Shift Note: Assumed care of patient, awake and alert. No S/S of distress/SOB or pain. Bed in lowest locked position, side rails up x 2, call light within reach. Ogden in place, patent and draining tanna urine. Patient instructed on POC and to call for assist PRN, will continue to monitor for changes Q1hr and PRN.
[2019-08-30] MEDS: InsuLIN REG 1unit/0.01ml Soln (100units/ml) SC SCH ×4 (07:15→22:00)
[2019-08-30] MEDS: ACCU-CHEK COMFORT CURVE STRIP VI SCH ×4 (07:15→22:00)
[2019-08-30] MEDS: Glucerna Carbsteady SHAKE Vanilla 8oz PO SCH ×3 (07:38→17:13)
[2019-08-30 09:00] VITALS: BP 129/75
[2019-08-30] MEDS: INSULIN LANTUS (GLARGINE) 1 /0.01ml (100units/ml) SC SCH (10:00)
[2019-08-30] MEDS: AMIODARONE HCL 200 MG TAB PO SCH ×2 (10:26→22:17)
--- NOTE | 2019-08-30 10:58 | NUR ---
Patient refused to get out of bed. Patient states "I am too weak."
[2019-08-30] MEDS: ALBUTEROL SULF 2.5 MG/0.5ML(0.5%) NEB SOLN NEB SCH ×2 (11:11→18:00)
[2019-08-30] MEDS: ACETYLCYSTEINE 10 %(100MG/ML) SOL 4ML NEB SCH ×2 (11:12→18:00)
[2019-08-30] MEDS: HYDROcodone-ACET 5/325MG TAB PO PRN (11:53)
[2019-08-30] MEDS ORDERED: PIPERACILLIN-TAZOB 3.375GM 100 ML IV SCH (12:00)
[2019-08-30] MEDS: SODIUM FERR GLUC 62.5MG/5ML 125 MG in SODIUM CHL 0.9% 100 ML IV SCH (12:00)
--- NOTE | 2019-08-30 12:42 | NUR ---
Patient refused sacral dressing change at this time.
[2019-08-30 12:57] LABS: Urine Bacteria FEW /hpf (None Seen); Urine Blood 3+ /uL (Negative); Urine Mucus FEW (None Seen); Urine Specific Gravity 1.018 (1.001-1.035); Urine WBC 129 /hpf (0 - 3); Urine WBC Clumps PRESENT /hpf (None Seen)
[2019-08-30 13:00] VITALS: BP 134/68
[2019-08-30] MEDS: AZTREONAM 1GM INJ 1 GM in D5W 5% 50 ML IV SCH ×2 (14:08→22:17)
--- NOTE | 2019-08-30 14:17 | NUR ---
PT Patient refused to be OOB during visit and stated he will have a procedure later today and c/o weakness. Offered to do TRIPP from bed or sit at EOB, declined. Addendum: 08/30/19 at 1418 by KAREN VALENZUELA PTT Amended: Links added.
--- NOTE | 2019-08-30 16:45 | NUR ---
Patient off unit for procedure.
[2019-08-30 17:00] VITALS: BP 143/73
[2019-08-30] MEDS ORDERED: CIPROFLOXACIN 400MG/200ML 200 ML IV ONE (17:01)
[2019-08-30] MEDS ORDERED: fentaNYL CITRATE 100 MCG/2 ML VL ONE (17:07)
[2019-08-30] MEDS ORDERED: MEPERIDINE HCL (25 MG/ML) 1ML VIAL ONE (17:07)
[2019-08-30] MEDS ORDERED: MIDAZOLAM HCL 1MG/1ML-2 ML VIAL ONE (17:08)
[2019-08-30] MEDS ORDERED: DexAMETHasone SOD PHOS 10MG/1ML VIAL INJ ONE (17:33)
[2019-08-30] MEDS ORDERED: PROPOFOL 10 MG/ML 20 ML IV ONE (17:33)
[2019-08-30] MEDS ORDERED: ePHEDrine SULFATE 50 MG/ML AMP IV PRN (18:15)
[2019-08-30] MEDS ORDERED: MIDAZOLAM HCL 1MG/1ML-2 ML VIAL IV PRN (18:15)
[2019-08-30] MEDS ORDERED: MORPHINE SULFATE 4 MG/ML SYR/VIAL IV PRN (18:15)
[2019-08-30] MEDS ORDERED: LABETALOL HCL 5 MG/ML 4ML SYRINGE IV PRN (18:15)
--- NOTE | 2019-08-30 18:28 | NUR ---
Respiratory note: SCHEDULED MED NEB TX NOT GIVEN. PT AT A PROCEDURE.
--- NOTE | 2019-08-30 19:24 | NUR ---
Closing note: Patient still down to procedure at this time. NOC RN update. Endorsed care to NOC RN.
--- NOTE | 2019-08-30 19:32 | NUR ---
1931 received report from PACU from Nurse Savanna
--- NOTE | 2019-08-30 19:50 | NUR ---
Pt back to floor A&O X 4 on continuous bladder irrigation HR 75, BP 150/59. Will continue to monitor.
[2019-08-30 22:00] VITALS: BP 146/68
[2019-08-31] MEDS: IPRATROPIUM BROM 0.5 MG/2.5ML INH SOL NEB SCH ×4 (00:40→19:21)
[2019-08-31] MEDS: ACETYLCYSTEINE 10 %(100MG/ML) SOL 4ML NEB SCH ×4 (00:40→19:22)
[2019-08-31] MEDS: ALBUTEROL SULF 2.5 MG/0.5ML(0.5%) NEB SOLN NEB SCH ×4 (00:40→19:21)
[2019-08-31 05:00] VITALS: BP 150/60
[2019-08-31] MEDS: ACCU-CHEK COMFORT CURVE STRIP VI SCH ×4 (07:21→22:05)
[2019-08-31] MEDS: AZTREONAM 1GM INJ 1 GM in D5W 5% 50 ML IV SCH ×3 (07:21→22:04)
[2019-08-31] MEDS: InsuLIN REG 1unit/0.01ml Soln (100units/ml) SC SCH ×4 (07:21→22:05)
[2019-08-31] MEDS: HYDROcodone-ACET 5/325MG TAB PO PRN ×3 (07:26→21:40)
--- NOTE | 2019-08-31 07:30 | NUR ---
CALL FROM DOCTOR LIVE. PER DOCTOR LIVE STOP THE BLADDER IRRIGATION,DIAZ OUT NOON,NO BLOOD THINNERS. DAY NURSE LINA DRISCOLL.
--- NOTE | 2019-08-31 07:55 | NUR ---
BLADDER IRRIGATION STOPPED PER DOCTOR LIVE ORDER.
[2019-08-31 08:00] VITALS: BP 140/59
[2019-08-31] MEDS: Glucerna Carbsteady SHAKE Vanilla 8oz PO SCH ×3 (08:00→17:28)
[2019-08-31 09:04] VITALS: BP 140/59
[2019-08-31] MEDS: BELLADONNA ALKAL/OPIUM (16.2/30MG) RECT SUPP PR SCH (10:00)
[2019-08-31 10:21] LABS: Basophils # (auto) 0 uL; Basophils % (auto) 0.2 % (0.0-2.0); Eosinophils # (auto) 0 uL; Lymphocytes # (auto) 0.6 uL; Monocytes # (auto) 0.4 uL; Red Cell Distribution Width 19.7 % (11.8-14.3); White Blood Cell 10.2 10^3/uL (4.4-10.8)
[2019-08-31 10:23] LABS: Hematocrit 25.1 % (41.0-53.0); Hemoglobin 7.8 g/dL (13.5-17.5); Lymphocytes % (auto) 6.2 % (10.0-50.0); Mean Corpuscular Hemoglobin 24.6 pg (28.0-32.0); Mean Corpuscular Hgb Conc. 31.3 g/dL (32.0-36.0); Mean Corpuscular Volume 78.6 fL (80.0-100.0); Monocytes % (auto) 3.9 % (0.0-12.0); Neutrophils # (auto) 9.1 uL; Neutrophils % (auto) 89.7 % (37.0-80.0); Platelet Count (auto) 557 10^3/uL (140-450); Red Blood Cells 3.19 10^6/uL (4.5-5.90)
[2019-08-31 10:38] LABS: Potassium 3.8 mmol/L (3.5-5.1)
[2019-08-31 10:41] LABS: BUN/Creatinine Ratio 39.4
[2019-08-31] MEDS: AMIODARONE HCL 200 MG TAB PO SCH ×2 (10:57→22:05)
[2019-08-31] MEDS: INSULIN LANTUS (GLARGINE) 1 /0.01ml (100units/ml) SC SCH (10:57)
--- NOTE | 2019-08-31 11:58 | NUR ---
PT Patient pleasantly refused to be OOB during visit and stated he wants the catheter removed. Addendum: 08/31/19 at 1159 by KAREN VALENZUELA PTT Amended: Links added.
[2019-08-31] MEDS: SODIUM FERR GLUC 62.5MG/5ML 125 MG in SODIUM CHL 0.9% 100 ML IV SCH (12:00)
--- NOTE | 2019-08-31 12:15 | NUR ---
Respiratory note: PT STATES HE WOULD LIKE TO EAT HIS LUNCH FIRST. WILL RETURN TO DRAW ABG WHEN PATIENT IS FINISHED WITH HIS LUNCH.
[2019-08-31 12:49] VITALS: BP 132/59
--- NOTE | 2019-08-31 15:45 | NUR ---
Respiratory note: NO ABG NEEDED DUE TO PT MAINTAINING SATURATIONS >90% PER DR SHARPE.
--- NOTE | 2019-08-31 16:03 | NUR ---
Nutrition Follow-up Notes Wt.: 62.3 kg as of yesterday. Pt's Cystoscopy with clot evacuation Transurethral resection of prostate gland yesterday, on oxygen via nasal cannula, watching TV, denies any discomfort when rounded this morning. Pt's currently on Regular diet with Glucerna Shakes 1 carton TID, has inadequate PO intake aeb <50% ave. consumed meals (x5) in last 3 days d/t pt refused, per nursing. Discussed importance of adequate nutrition r/t current medical condition and encouraged to increase food intake through small frequent meals as tolerated. Est. Needs: 1750 kcal to 2050 kcal (30-35 kcal/kgBW), 59 gms to 83 gms pro (1.0-1.4 gms/kgBW d/t severe hypoalbuminemia, wound healing). Will continue to monitor pertinent labs and reassess nutrient need prn Labs: Gluc 234 H, Na 130 L, BUN 28 H, Ca 8.0 L; Tpro 6.1 L, Alb 2.0 L Skin: Darryl scale 13,mod risk, pt's medial sacrum DTI per spinner operator. Pls refer to latest quarrying manager's notes for further details re: tx plans. GI: Pt had 2x BM 09/28/19 per spinner operator. PES: Increased nutrient needs r/t acute/chronic medical condition aeb 96% IBW, BMI 21.7 kg/m2, decreased muscle mass, hx of wt loss, wound healing, severe hypoalbuminemia,<75% consumed meals. Altered nutrition related lab values r/t current/chronic medical condition aeb hyperglycemia, hyponatremia, hypokalemia, hypochloremia, hypocalcemia and severe hypoalbuminemia Will continue to monitor PO intake, skin status, pertinent labs and weight trend. F/u in 3 to 5 days. Rec.: 1.) Pls enter order for Prostat 1 pkt BID, daily MVI with minerals and Asc acid 500 mgs BID, already e-signed approved by . 2.) Consider to resume Soft Consistent Standard Carb: 60 gms/meal diet. 3.) Continue close supervision and feeding assistance prn during meals. 4.) Refer to CDE/RD for further nutrition educ. and weight monitoring upon discharge. 5.) Continue current plan of care.
[2019-08-31 17:19] VITALS: BP 139/57
--- NOTE | 2019-08-31 20:05 | NUR ---
open note assumed care of pt. upon entering room pt awake, alert and oriented. pt on 2L NC no distress noted or expressed. pt updated on plan of care, no questions at this time. pt reports having voided 'small amount', when asked rt to discontinuation of guzman earlier today; encouraged pt to let this nurse or TECHNICAL SERVICE REPRESENTATIVE know when he voids in order to get accurate measurement to which he agreed. pt bed locked, low and 2x rails up. call light in reach. this nurse will round q1hr and prn.
[2019-08-31 22:00] VITALS: BP 137/59
[2019-09-01] MEDS: ACETYLCYSTEINE 10 %(100MG/ML) SOL 4ML NEB SCH ×3 (00:42→11:33)
[2019-09-01] MEDS: ALBUTEROL SULF 2.5 MG/0.5ML(0.5%) NEB SOLN NEB SCH ×3 (00:42→11:33)
[2019-09-01] MEDS: IPRATROPIUM BROM 0.5 MG/2.5ML INH SOL NEB SCH ×3 (00:42→11:33)
--- NOTE | 2019-09-01 00:42 | NUR ---
Respiratory note: PT REFUSED SCHED MED NEB TX AT THIS TIME. SAYS HE WANTS TO SLEEP. PT IS RESTING COMFORTABLY WITH NO S/S OF SOB. WILL CONTINUE TO MONITOR.
[2019-09-01 03:38] VITALS: BP 137/59
[2019-09-01 05:00] VITALS: BP 139/64
[2019-09-01] MEDS: AZTREONAM 1GM INJ 1 GM in D5W 5% 50 ML IV SCH ×2 (06:00→14:50)
[2019-09-01 06:05] LABS: Basophils # (auto) 0 uL; Basophils % (auto) 0.2 % (0.0-2.0); Eosinophils # (auto) 0 uL; Mean Corpuscular Hemoglobin 24.8 pg (28.0-32.0); Monocytes # (auto) 0.9 uL; Neutrophils # (auto) 11.6 uL
[2019-09-01 06:14] LABS: Eosinophils % (auto) 0.2 % (0.0-7.0); Hematocrit 25.9 % (41.0-53.0); Lymphocytes % (auto) 7.2 % (10.0-50.0); Mean Corpuscular Hgb Conc. 30.8 g/dL (32.0-36.0); Mean Corpuscular Volume 80.4 fL (80.0-100.0); Monocytes % (auto) 6.7 % (0.0-12.0); Neutrophils % (auto) 85.7 % (37.0-80.0); Nucleated Red Blood Cells % 0.1 %; Platelet Count (auto) 597 10^3/uL (140-450); Red Blood Cells 3.23 10^6/uL (4.5-5.90); Red Cell Distribution Width 19.4 % (11.8-14.3); White Blood Cell 13.6 10^3/uL (4.4-10.8)
[2019-09-01] MEDS: InsuLIN REG 1unit/0.01ml Soln (100units/ml) SC SCH ×2 (07:06→12:28)
[2019-09-01] MEDS: ACCU-CHEK COMFORT CURVE STRIP VI SCH ×2 (07:06→11:30)
[2019-09-01] MEDS: Glucerna Carbsteady SHAKE Vanilla 8oz PO SCH ×2 (08:00→12:13)
--- NOTE | 2019-09-01 08:00 | NUR ---
SPOKE TO Kelsy SENA REGARDING DISCHARGE. STATED OK TO GO HOME.
[2019-09-01 09:00] VITALS: BP 151/64
[2019-09-01] MEDS ORDERED: FURO20TA3 PO (09:14)
[2019-09-01] MEDS: BELLADONNA ALKAL/OPIUM (16.2/30MG) RECT SUPP PR SCH (10:00)
--- NOTE | 2019-09-01 10:15 | NUR ---
WOUND CARE NOTE: Wound care into see patient per Dr. Rahman's request to assess patient's sacral wound if patient would be needing home health wound care. Patient continue resting on air bed in Rm. 290A. Patient is awake, alert and follow simple direction. He's able to assist in turning and repositioning. Patient is in no stated pain at this time. Skin/wound assessment done with the assistance of patient's nurse, DEBBY Starr. Patient's sacrum continue to display large DTI (Deep Tissue Injury) and now open to full thickness. Wound bed is red/pink, minimal serous drainage noted, no odor noted. Patient and family wound care education provided, verbalized understanding. Patient tolerated well, repositioned for comfort. Family at bedside. RECOMMENDATION: Daily/PRN dressing change to sacral wound with Thera honey application per MD order, continuation of other wound care orders prescribed by MD, continue with skin/wound plan of care, continue monitoring by wound care while patient is hospitalized.
--- NOTE | 2019-09-01 10:19 | NUR ---
IS PROVIDED TO PATIENT. TEACHING PROVIDED. PATIENT RETURNED DEMONSTRATION.
[2019-09-01] MEDS: AMIODARONE HCL 200 MG TAB PO SCH (10:32)
[2019-09-01] MEDS: HYDROcodone-ACET 5/325MG TAB PO PRN (10:35)
[2019-09-01] MEDS: INSULIN LANTUS (GLARGINE) 1 /0.01ml (100units/ml) SC SCH (10:36)
--- NOTE | 2019-09-01 11:33 | NUR ---
Respiratory note: SCHEDULED MED NEB TX NOT GIVEN. PT STATED HE WAS TIRED AND JUST WANTED TO REST AT THIS TIME. NO RESP DISTRESS NOTED. FAMILY AT BEDSIDE. HE STATED HE WILL TAKE NEXT SCHEDULED TX.
[2019-09-01] MEDS: SODIUM FERR GLUC 62.5MG/5ML 125 MG in SODIUM CHL 0.9% 100 ML IV SCH (12:00)
--- NOTE | 2019-09-01 12:00 | NUR ---
CARDIOLOGY CLEARANCE: SPOKE TO Kelsy STEELE ABOUT PATIENT DISCHARGE. STATED OK TO GO HOME ON CARVEDILOL 6.25MG BID. WILL INFORM Jenny SHARPE.
[2019-09-01 12:48] VITALS: BP 142/68
[2019-09-01] MEDS ORDERED: CARV6.25 PO (13:16)
--- NOTE | 2019-09-01 15:38 | NUR ---
D/C Planning Per consult for home health wound care- sacral open pressure injury (open DTI ). Order was reviewed and approved by LUISA Dias. Faxed orders to [facility] Fax:). Contact [facility] Ph:) Fax: ) faxed medical records. Per Clayton order has been received and service to start within 24-48hrs upon d/c day. DEBBY Starr was informed.
--- NOTE | 2019-09-01 16:26 | NUR ---
TELE SENT BACK DOWN. SPOKE TO ALVARO TO INFORM.
--- NOTE | 2019-09-01 17:01 | NUR ---
Discharge instructions given as ordered. Encourage to follow up with PMD as instructed. Informed of pcp appointment and urology appointment, and cardiology refferal. instructed of home health visits for dressing changes. All questions and concerns addressed. Patient verbalized understanding. Medication reconciliation form completed and copy given to patient. IV removed with catheter intact, pressure dressing applied. Telemetry unit returned to ICU. Patient taken to vehicle via wheelchair with all personal belongings, accompanied by staff and family member. No distress noted at time of departure.
== END 2019-09-01 17:09 | disposition home or self-care (01) | DRG 853 ==
LOC: EDBD 19:32 → ER 19:36 → TELE 19:37 → TELE-WESTW 08-21 10:40
PROVIDERS: ADMIT Nurse Practitioner; ATTEND Internal Medicine
PROC: 0VB08ZZ Excision of Prostate, Via Natural or Artificial Opening Endoscopic (ICD-10-PCS; 2019-08-30)
PROC: 0TCB8ZZ Extirpation of Matter from Bladder, Via Natural or Artificial Opening Endoscopic (ICD-10-PCS; principal; 2019-08-30 17:09)
DX: A41.9 Sepsis, unspecified organism (principal); J18.9 Pneumonia, unspecified organism; I50.43 Acute on chronic combined systolic (congestive) and diastolic (congestive) heart failure; N17.0 Acute kidney failure with tubular necrosis; J96.00 Acute respiratory failure, unspecified whether with hypoxia or hypercapnia; I21.A1 Myocardial infarction type 2; J98.11 Atelectasis; E87.1 Hypo-osmolality and hyponatremia; D61.818 Other pancytopenia; N13.8 Other obstructive and reflux uropathy; R31.0 Gross hematuria; I11.0 Hypertensive heart disease with heart failure; I48.91 Unspecified atrial fibrillation; E11.9 Type 2 diabetes mellitus without complications; R07.81 Pleurodynia; N40.1 Benign prostatic hyperplasia with lower urinary tract symptoms; E87.6 Hypokalemia; D50.9 Iron deficiency anemia, unspecified; Z86.73 Personal history of transient ischemic attack (TIA), and cerebral infarction without residual deficits; Z88.1 Allergy status to other antibiotic agents; I25.2 Old myocardial infarction; Z88.8 Allergy status to other drugs, medicaments and biological substances; Z88.0 Allergy status to penicillin; Z88.6 Allergy status to analgesic agent; Z98.61 Coronary angioplasty status; Z88.5 Allergy status to narcotic agent; Z88.2 Allergy status to sulfonamides; Z79.4 Long term (current) use of insulin; Z79.84 Long term (current) use of oral hypoglycemic drugs; Z79.899 Other long term (current) drug therapy; Z83.3 Family history of diabetes mellitus
CPT/HCPCS: 36415; 36600; 70450; 71045; 74176; 78452; 80048; 80053; 80307; 81001; 82607; 82728; 82746; 82805; 82962; 83036; 83540; 83550; 83605; 83735; 83880; 84100; 84132; 84295; 84443; 84484; 85007; 85014; 85018; 85025; 85027; 85045; 85379; 85610; 86850; 86900; 86901; 87040; 87086; 93005; 93017; 93306; 94640; 97116; 97163; 97530; C9113; G0378; J0153; J0696; J1100; J1447; J1756; J1815; J1956; J2250; J2543; J2704; J3480; J7060